=== PATIENT | female | born 1935 | race Caucasian/White ===

== ENCOUNTER 2021-12-08 10:15 | Emergency (ER) | payer MEDICARE, OTHER, SELFPAY ==
[2021-12-08] VITALS (9 sets, daily range): BP systolic 94–124; BP diastolic 53–106; PULSE 84–190; RESP 17–26; TEMP 36.3; O2SAT 94–100; BMI 30.7
--- NOTE | 2021-12-08 10:21 | NURSING ---
NO OLD EKGS
--- NOTE | 2021-12-08 10:29 | EKG12_ITS ---
Test Reason : A FIB Blood Pressure : / mmHG Vent. Rate : 179 BPM Atrial Rate : 113 BPM P-R Int : 000 ms QRS Dur : 068 ms QT Int : 260 ms P-R-T Axes : 000 007 219 degrees QTc Int : 448 ms Supraventricular tachycardia with occasional Premature ventricular complexes ST & T wave abnormality, consider anterolateral ischemia Abnormal ECG Confirmed by ALETA MCCULLOUGH, TOMMY ([id number]), scientific publications editor ELFEGO MATUTE ([id number]) on 12/11/2021 10:46:47 AM Referred By: KAIT Confirmed By:TOMMY RIVER MD
--- NOTE | 2021-12-08 10:31 | EDS_ITS ---
HPI History of Present Illness Chief Complaint: Palpitations Informant: patient and spouse/S.O. Narrative Narrative: Patient sent in here by PCP Dr. Alonzo for being seen for 6-month visit. Patient hospitalized for 2 days discharge a week ago Saturday for recurre nt A. fib with RVR at [facility]. States she was cardioverted there. She has had atrial fibrillation for the past 3 years. She is followed by conservation of resources commissioner Dr. Doherty. Patient denies palpitations racing heart rate or lightheaded symptoms. Heart rate was in the 170s in the office. Denies chest pains. Patient took her Eliquis last dose yesterday at 7:30 PM. She forgot this morning's dose due to going to the doctor's office. She is on diltiazem. Prior similar symptoms: Yes PFSH PFSH Medical History (Updated 12/08/21 @ 12:[address] Matt Boucher DO) Atrial fibrillation Hypertension Home Medications Eliquis 5 mg PO/SL BID 12/08/21 [History Last Taken Unknown] amlodipine 2.5 mg PO/SL DAILY 12/08/21 [History Last Taken Unknown] atorvastatin 10 mg PO/SL DAILY 12/08/21 [History Last Taken Unknown] metoprolol succinate 50 mg PO/SL DAILY 12/08/21 [History Last Taken Unknown] spironolactone 25 mg PO/SL DAILY 12/08/21 [History Last Taken Unknown] Allergy/AdvReac Type Severity Reaction Status Date / Time codeine Allergy Rash Verified 12/08/21 10:18 Surgical History (Updated 12/08/21 @ 10:36 by Elmira Lynn) History of appendectomy Social History Smoking Status: Never smoker ROS ROS ED Constitutional Constitutional ED: Denies chills, fever(s) or sweats Eyes Eyes: Denies change in vision ENT ENT ED: Denies dysphagia or sore throat Cardiovascular Cardiovascular: Denies chest pain, leg edema, palpitations or racing heartbeat Respiratory/Chest Respiratory/Chest: Denies cough, dyspnea or dyspnea on exertion Gastrointestinal Gastrointestinal: Denies abdominal pain, diarrhea, nausea or vomiting Genitourinary Genitourinary ED: Denies dysuria, hematuria or urinary frequency Musculoskeletal Musculoskeletal: Denies back pain, extremity pain or neck pain Integumentary Denies rash or wounds Neurologic Neurologic: Denies headache(s), paresthesias or weakness EXAM Physical Exam Const Vital Signs: 12/08/21 10:16 12/08/21 10:37 12/08/21 10:49 Temperature 97.4 F L Temperature Source Temporal Pulse Rate 113 H 190 H Pulse Rate [1 (Initial Baseline)] Pulse Rate [2] Pulse Rate [3] Pulse Rate [4] Respiratory Rate 18 22 H Respiratory Rate [1 (Initial Baseline)] Respiratory Rate [2] Respiratory Rate [3] Respiratory Rate [4] Respiratory Effort Normal Blood Pressure 116/77 121/106 H Blood Pressure [1 (Initial Baseline)] Blood Pressure [2] Blood Pressure [3] Blood Pressure Mean 90 Pulse Ox 95 96 97 Oxygen Delivery Method Room Air Room Air Nasal Cannula Oxygen Delivery Method [1 (Initial Baseline)] Oxygen Delivery Method [2] Oxygen Delivery Method [3] Oxygen Delivery Method [4] Oxygen Flow Rate (L/min) 2 Oxygen Flow Rate (L/min) [1 (Initial Baseline)] Oxygen Flow Rate (L/min) [2] Oxygen Flow Rate (L/min) [3] Oxygen Flow Rate (L/min) [4] 12/08/21 10:51 12/08/21 11:04 12/08/21 11:11 Temperature Temperature Source Pulse Rate 85 88 Pulse Rate [1 (Initial Baseline)] 175 H Pulse Rate [2] 118 H Pulse Rate [3] 84 Pulse Rate [4] 110 H Respiratory Rate 18 23 H Respiratory Rate [1 (Initial Baseline)] 24 H Respiratory Rate [2] 20 H Respiratory Rate [3] 26 H Respiratory Rate [4] 21 H Respiratory Effort Blood Pressure 108/71 Blood Pressure [1 (Initial Baseline)] 117/85 H Blood Pressure [2] 94/53 L Blood Pressure [3] 105/65 Blood Pressure Mean 83 Pulse Ox 100 95 Oxygen Delivery Method Non-Rebreather Room Air Oxygen Delivery Method [1 (Initial Baseline)] Nasal Cannula Oxygen Delivery Method [2] Non-Rebreather Oxygen Delivery Method [3] Non-Rebreather Oxygen Delivery Method [4] Non-Rebreather Oxygen Flow Rate (L/min) 15 Oxygen Flow Rate (L/min) [1 (Initial Baseline)] 2 Oxygen Flow Rate (L/min) [2] 15 Oxygen Flow Rate (L/min) [3] 15 Oxygen Flow Rate (L/min) [4] 15 12/08/21 11:14 12/08/21 12:00 12/08/21 13:21 Temperature Temperature Source Pulse Rate 108 H 97 96 Pulse Rate [1 (Initial Baseline)] Pulse Rate [2] Pulse Rate [3] Pulse Rate [4] Respiratory Rate 17 22 H 17 Respiratory Rate [1 (Initial Baseline)] Respiratory Rate [2] Respiratory Rate [3] Respiratory Rate [4] Respiratory Effort Blood Pressure 102/60 124/57 H 107/82 H Blood Pressure [1 (Initial Baseline)] Blood Pressure [2] Blood Pressure [3] Blood Pressure Mean 79 Pulse Ox 96 95 97 Oxygen Delivery Method Room Air Room Air Oxygen Delivery Method [1 (Initial Baseline)] Oxygen Delivery Method [2] Oxygen Delivery Method [3] Oxygen Delivery Method [4] Oxygen Flow Rate (L/min) Oxygen Flow Rate (L/min) [1 (Initial Baseline)] Oxygen Flow Rate (L/min) [2] Oxygen Flow Rate (L/min) [3] Oxygen Flow Rate (L/min) [4] Positive well nourished and well developed General Appearance ED: well developed and NAD HEENT Reports moist mucous membranes normocephalic and atraumatic Eyes PERRL, EOMs intact bilaterally and conjunctivae normal General Eye ED: Yes normal appearance of both eyes Neck no lymphadenopathy and supple General: Negative for tenderness Chest Wall Chest: Negative for tenderness Resp normal respiratory effort and normal air movement Effort and Inspection: symmetric chest movement; Negative for respiratory distress Cardio no murmurs Rate: tachycardic Rhythm: abnormal rhythm Peripheral Pulses: pulses 2+ throughout GI normal to inspection, nondistended, normoactive bowel sounds and non-tender Palpation: Negative for guarding or rebound tenderness present Back/Spine no CVA tenderness and no thoracic nor lumbar tenderness Extremity normal to inspection General Extremety ED: Negative for edema or tenderness General Extremity: Negative for edema Neuro oriented x3 and no sensory deficits noted Sensorium / Orientation: awake and alert Skin no rashes or lesions noted and no wounds MDM MDM MDM Narrative Medical decision making narrative: Patient last meal nearly 4 hours ago. She is asymptomatic. She is in A. fib with RVR. Blood pressure stable. She is on Eliquis. She will be given her Eliquis dose for this morning. Patient did not want to be admitted in the hospital. She is currently asymptomatic. I discussed with patient since she is on anticoagulations for direct-current cardioversion. She agrees. Labs will be drawn for electrolytes evaluation. She will be consented. Labs are all stable. Procedure note: Written consent. Risks and benefits discussed. athletic monitor, oxygen, pulse ox, IV fluids. AP pads were placed on the patient. Total of 50 mg propofol was used for sedation. Patient given 150 J synchronized direct-current cardioversion, heart rate down to the 120s, had brief sinus rhythm however returned to atrial fibrillation. With patient's breast tissue, additional cardioversion now with towels pressed against the anterior pads at 150 J synchronized, appear to hold sinus rhythm down to the 80s with occasional PACs. Patient had snoring episodes with brief hypoxia improved with vent mask. She is monitored she waking with no complications. Patient continue to be monitored with. Heart rate in the 80s to 90s with PACs. She is given her home dose of metoprolol 50 mg extended release. Heart rate controlled, however repeat EKG obtained. To have rate controlled atrial fibrillation rhythm at 91. There is no acute changes. Patient clinically stable. I discussed with her the significant other currently rate controlled at this time. She is on anticoagulation medicines. She did not want to be adm itted to the hospital currently with rate control I do not think this is necessary. She will follow-up with her conservation of resources commissioner for additional medications as needed or treatment plans. Strict return precautions discussed. Patient is being discharged under pandemic conditions under declared global, national and state disaster activation, with limited medical resources. Patient and community understands this. Results discussed in layman's terms to the patient satisfaction. All questions answered in layman's terms. Patient understands importance of follow-up care as directed. Patient has been instructed to return to the ED immediately if new symptoms, problems, or questions occur. We mutually agree with the plan of disposition. The patient understand that they may call or return with any questions or concerns at any time. Lab Data Attestation: I reviewed the patient's lab results. Labs: Laboratory Results - last 24 hr 12/08/21 12/08/21 10:30 10:30 WBC 9.7 RBC 4.90 Hgb 14.6 Hct 45.7 MCV 93.3 MCH 29.8 MCHC 31.9 L RDW Std Deviation 50.6 H RDW Coeff of [place] 14.6 Plt Count 238 MPV 11.8 Immature Gran % (Auto) 0.400 Neut % (Auto) 70.4 H Lymph % (Auto) 16.2 L [place] % (Auto) 10.7 H Eos % (Auto) 1.5 Baso % (Auto) 0.8 Absolute Neuts (auto) 6.8 Absolute Lymphs (auto) 1.56 Nucleated RBC % 0 Sodium 137 Potassium 3.9 Chloride 105 Carbon Dioxide 25.0 Anion Gap 7 BUN 19 H Creatinine 1.17 H Estim Creat Clear Calc 30.91 Est GFR (MDRD) Af Amer 57 L Est GFR (MDRD) Non-Af 47 L BUN/Creatinine Ratio 16.2 Glucose 111 H Calcium 9.3 Magnesium 2.2 EKG Initial EKG: Attestation: I personally reviewed and interpreted this EKG as follows: Comments: Atrial fibrillation RVR rate 179, no ST changes, there is occasional PVCs noted. Discharge Plan Triage Chief Complaint: Palpitations ED Provider: Matt Boucher Dx/Rx/DC Orders Clinical Impression: Atrial fibrillation, Atrial fibrillation status post cardioversion Instructions: ED AFIB, ED Procedural Sedation, (Adult) Prescriptions: No Action Eliquis 5 mg PO/SL BID RF: 0 amlodipine 2.5 mg PO/SL DAILY RF: 0 atorvastatin 10 mg PO/SL DAILY RF: 0 metoprolol succinate 50 mg PO/SL DAILY RF: 0 spironolactone 25 mg PO/SL DAILY RF: 0 Primary Care Provider: Josh Alonzo Referrals: Josh Alonzo MD [Primary Care Provider] - Activity Restrictions/Additional Instructions: Atrial fibrillation RVR, status post attempted cardioversion x2 at 150 J, sinus rhythm was maintained briefly, however returned to atrial fibrillation. Your heart rate is controlled in the 90s currently. Continue your home medications. Follow-up with Dr. Doherty for further treatment medication. Disposition Disposition: Home, Self Care Discharge Date/Time: 12/08/21 13:31
[2021-12-08] MEDS: 0.9% Normal Saline 1,000 ML 1000 ML IV (10:35)
[2021-12-08 10:45] LABS: Absolute Lymphocyte Count 1.56 X10^3/uL (0.83-4.51); Absolute Neutrophil Count 6.8 X10^3/uL (2.0-7.7); Basophil# 0.08 X10^3/uL; Basophil% 0.8 % (0-1); Eosinophil# 0.14 X10^3/uL; Eosinophils% 1.5 % (0-5); Hematocrit 45.7 % (37-47); Hemoglobin 14.6 g/dL (12.0-15.0); Lymphocyte # 1.56 X10^3/ul (0.83-4.51); Lymphocyte % 16.2 % (19-41); Mean Corp Hgb Conc 31.9 g/dL (32-36); Mean Corpuscular Hgb 29.8 pg (27.0-32.0); Mean Corpuscular Volume 93.3 fL (81-99); Mean Platelet Vol. 11.8 fl (6.2-12.0); Monocyte# 1.03 X10^3/uL; Monocyte% 10.7 % (0-10); NRBC Flagged by Analyzer 0 % (0-5); Neutrophil % 70.4 % (47-70); Platelet Count 238 K/mm3 (150-450); RBC Distribution Width CV 14.6 % (11.6-14.6); RBC Distribution Width SD 50.6 fl (35.1-43.9); White Blood Count 9.7 K/mm3 (4.4-11.0)
[2021-12-08] MEDS: APIXABAN 5 MG TABLET PO (10:45)
[2021-12-08] MEDS: Propofol 200 MG/20 ML Vial IV BOLUS (10:52)
[2021-12-08 11:00] LABS: Anion Gap 7 (5-15); BUN 19 mg/dL (7-18); BUN/Creat Ratio 16.2 RATIO (10-20); Calcium,Total 9.3 mg/dL (8.5-10.1); Chloride 105 mmol/L (98-107); Creatinine, Serum 1.17 mg/dL (0.55-1.02); EST Glomerular Filtration Rate 47 mL/min (>60); Est Glom Filt Rate - Afr Amer 57 mL/min (>60); Estimated Creatinine Clearance 30.91 ml/min; Glucose 111 mg/dL (74-106); Magnesium 2.2 mg/dL (1.6-2.6); Potassium 3.9 mmol/L (3.5-5.1); Sodium Level 137 mmol/L (136-145)
--- NOTE | 2021-12-08 11:15 | EKG12_ITS ---
Test Reason : POST MEDS Blood Pressure : / mmHG Vent. Rate : 091 BPM Atrial Rate : 468 BPM P-R Int : 000 ms QRS Dur : 078 ms QT Int : 360 ms P-R-T Axes : 000 000 -14 degrees QTc Int : 442 ms Atrial fibrillation with premature ventricular or aberrantly conducted complexes T wave abnormality, consider anterior ischemia Abnormal ECG Confirmed by ALETA MCCULLOUGH, TOMMY ([id number]), research editor ELFEGO MATUTE ([id number]) on 12/11/2021 10:47:56 AM Referred By: KAIT Confirmed By:TOMMY RIVER MD
[2021-12-08] MEDS: Metoprolol(XL)Succ 50 MG Tablet PO (12:05)
== END 2021-12-08 13:31 | disposition home or self-care (01) ==
PROVIDERS: Emergency Provider Emergency Medicine; PCP Internal Medicine; Visit Provider Emergency Medicine
DX: I48.91 Unspecified atrial fibrillation (principal); I49.1 Atrial premature depolarization; I10 Essential (primary) hypertension; Z79.01 Long term (current) use of anticoagulants; Z79.899 Other long term (current) drug therapy
CPT/HCPCS: 80048; 83735; 85025; 92960; 93005; 96360; 99152; 99285; J7030; A4216